=== PATIENT | male | born 1960 | race African-American/Black ===

== ENCOUNTER 2018-02-19 11:16 | Emergency (ER) | payer BC, OTHER ==
[~2018-02-19] VITALS: Ht 180.3 cm; Wt 115.0 kg
[2018-02-19 11:17] VITALS: BP 153/96; PULSE 99; RESP 16; TEMP 98.3; O2SAT 100
[2018-02-19] MEDS ORDERED: IBUP1TAB7 PO (11:28)
[2018-02-19] MEDS ORDERED: CYCL10TA PO (11:28)
[2018-02-19] MEDS ORDERED: ACETAMINOPHEN 500 MG CPLT PO ONE (11:30)
[2018-02-19] MEDS ORDERED: IBUPROFEN 800 MG TAB PO ONE (11:30)
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
== END 2018-02-19 12:15 | disposition home or self-care (01) ==
LOC: NEPK 11:16
DX: S30.0XXA Contusion of lower back and pelvis, initial encounter (principal); W19.XXXA Unspecified fall, initial encounter; Y93.F9 Activity, other caregiving; Y92.239 Unspecified place in hospital as the place of occurrence of the external cause; Y99.0 Civilian activity done for income or pay
CPT/HCPCS: 99283